=== PATIENT | male | born 1945 | race Caucasian/White ===

== ENCOUNTER → 2017-09-24 10:32 | Outpatient (CLI) | payer MEDICARE, BC, SELFPAY ==
--- NOTE | 2017-09-24 10:39 | XR_ITS ---
XR chest 2V Ordering Physician: Aram Clarke Patient Age: 72 years: Male HISTORY: ITS.REASON: COUGH Cough congestion. Bronchospasms one-month nonsmoker TECHNIQUE: PA and lateral chest COMPARISON :March 2014 FINDINGS Today's smasher digital chest film does accentuate markings at the lower lobe on the lateral view. Slight increased density here and overall I am suspect of a very subtle infiltrate at the lower lobe posteriorly. Likely the right lower lobe but could be left Upper lung bhatti appear stable and clear. Cardiomegaly. Parvin and mediastinal structures satisfactory. Chest wall unremarkable ribs intact. Anterior marginal osteophytes and developing degenerative changes throughout T-spine. No pleural effusion or pneumothorax. No chest lesions evident --- IMPRESSION ----- Subtle additional density posterior lower lobe on lateral film. This Appearance suspect for subtle hazy minimal lower lobe infiltrate superimposed upon mild chronic changes here .-Favor RLL but could be LLL. Clinical correlation required
== END ==
PROVIDERS: PCP Family Medicine; Visit Provider Allergy & Immunology
DX: R05 Cough (principal)
CPT/HCPCS: 71046

== ENCOUNTER → 2020-05-29 10:55 | Outpatient (CLI) | payer MEDICARE, BC, SELFPAY ==
[2020-05-29 12:56] LABS: Coronavirus 19 IgG Antibody Negative (Negative); Coronavirus 19 IgM Antibody Negative (Negative)
== END ==
PROVIDERS: Visit Provider Internal Medicine Gastroenterology
DX: Z01.89 Encounter for other specified special examinations (principal); Z12.11 Encounter for screening for malignant neoplasm of colon
CPT/HCPCS: 36415; 86328

== ENCOUNTER 2020-05-31 08:59 | Day surgery (SDC) | payer MEDICARE, BC, SELFPAY ==
[2020-05-31] VITALS (8 sets, daily range): BP systolic 77–127; BP diastolic 45–84; PULSE 59–80; RESP 18; TEMP 36.1–36.4; O2SAT 94–100; BMI 26.9
--- NOTE | 2020-05-31 09:42 | HMH.ANESCL ---
[facility] Anesthesia Checklist - Patient Identification Patient Identification: Arm Band - Structural Data Admitted From: Home Planned Operative Procedure/s: colonoscopy Verified Documents: Surgical Consent, History and Physical - NPO Status Verified Time NPO: 00:00 - Additional verifications Anesthesia Reactions: No - Airway Assessment C-Spine Mobility Assessed: Yes (mp2) TMJ Mobility Assessed: Yes Dentition: Good Dentition - Neurological Assessment Level of Consciousness: Awake, Alert - Anesthesia Plan Anesthesia Risk discussed: Yes Anesthesia Plan: Verified ASA Class: III Anesthesia Type: MAC [facility] History I have reviewed the patient's past medical history: Yes Medical History: Reports:: Asthma, Cancer (lung), Hypertension, Kidney Stones Denies:: Diabetes Mellitus Type 1, Diabetes Mellitus Type 2, Internal Pacemaker, MRSA, Seizures *Have you ever received a pneumonia vaccine?: Yes *Have you received a flu vaccine this season?: Yes Anesthesia experience/problems:: nac Other Surgeries: Yes: Cancer Surgery, Sinus Surgery, Other. No: Pacemaker Amputation: No Fractures: No - *Social History Smoking Status: Former smoker Alcohol Intake: never Substance Use Type: denies use *Occupational Status:: retired Housing: house *Travel in the last 8 weeks: None Family Hx:: Cancer, Heart Attack, Hypertension
--- NOTE | 2020-05-31 10:13 | P.PCN_ITS ---
[facility] Procedure Note Procedure Note:: Colonoscopy Procedure Report: Colonoscopy with cold snare polypectomy Endoscopist: Chandrakant Senior II, MD Referring physician: Billy Menard MD Date of Procedure: May 31, 2020 Equipment: Olympus 180 variable stiffness pediatric colonoscope Sedation: MAC sedation Indication: Mr. Moore is a 75-year-old gentleman who is here for follow-up screening/surveillance colonoscopy. He does have a personal history of colon polyps. He had a colonoscopy when 2012 and had 2 polyps. His last colonoscopy was 2014 (Uli Lawson MD). He reports no abdominal pain, weight loss, change in his bowel habits or rectal bleeding. He reports no family history of colon cancer. His recent lab work showed normal CMP and normal CBC with hemoglobin 15.1 and hematocrit 44.3. He has had prior prostatectomy for prostate cancer. Procedure: Prior to the procedure, a history and physical exam was performed, and patient's medications and allergies were reviewed. The risks, benefits and alternatives of the sedation and procedure were discussed with the patient. All questions were answered and informed consent was obtained. The patient was brought to the procedure room. Patient identification and proposed procedure were verified by the physician and the nurse. The patient was placed in a left lateral decubitus position and the scope was passed under direct vision. Throughout the procedure, the patient's blood pressure, pulse, and oxygen saturations were monitored continuously. The colonoscopy was accomplished without difficulty. The patient tolerated the procedure well. Findings: On digital rectal examination there was normal rectal tone. There were no external hemorrhoids. The colonoscope was introduced through the anal canal to the rectum and advanced to the cecum. The ileocecal valve and appendiceal orifice were identified. The scope was advanced a short distance into the ileum which appeared grossly normal. The scope was then withdrawn into the colon. The cecum, ascending and transverse colon and mucosa were grossly normal. There was a larger sessile polyp between haustral folds in the descending colon that was 18 mm and was removed with piecemeal resection via cold snare polypectomy. There were extensive scattered diverticuli throughout the descending and sigmoid colon (LEFT colon). The rectum itself was normal. Upon retroflexion within the rectum there were grade 1-2 internal hemorrhoids. The preparation was good throughout with Norton Preparation Score of 8 out of 9. The cecal time was 13 minutes. Impression: 1. Descending colon polyp (18 mm) 2. Extensive left-sided diverticulosis 3. Grade 1-2 internal hemorrhoids Plan: I will follow-up the polyp histology and recommend repeat screening/surveillance colonoscopy again in 3 years based upon the size and adenomatous nature of this colon polyp. I would encourage bulk fiber supplementation on a long-term daily maintenance basis.
== END 2020-05-31 11:39 | disposition home or self-care (01) ==
LOC: OUTP 09:01
PROVIDERS: PCP Family Medicine; Visit Provider Internal Medicine Gastroenterology
PROC: 0DJD8ZZ Inspection of Lower Intestinal Tract, Via Natural or Artificial Opening Endoscopic (ICD-10-PCS; CPT 45378; principal; 2020-05-31 10:00)
DX: Z12.11 Encounter for screening for malignant neoplasm of colon (principal); Z86.010 Personal history of colon polyps; K63.5 Polyp of colon; K57.30 Diverticulosis of large intestine without perforation or abscess without bleeding; K64.0 First degree hemorrhoids; J45.909 Unspecified asthma, uncomplicated; I10 Essential (primary) hypertension; Z85.118 Personal history of other malignant neoplasm of bronchus and lung; Z87.442 Personal history of urinary calculi; Z87.891 Personal history of nicotine dependence; Z80.9 Family history of malignant neoplasm, unspecified; Z82.49 Family history of ischemic heart disease and other diseases of the circulatory system
CPT/HCPCS: 45385; 88305